=== PATIENT | female | born 1995 | race Caucasian/White ===

== ENCOUNTER 2020-12-08 22:32 | Emergency (ER) | payer OTHER, SELFPAY ==
[2020-12-09 00:24] LABS: Urine Blood 3+ (NEG); Urine Glucose NEGATIVE (NEG); Urine Protein 3+ (NEG); Urine Specific Gravity >1.030 (1.005-1.030)
[2020-12-09 01:51] LABS: Urine Bacteria LOADED /HPF (<20); Urine Mucus 2+ /HPF (NONE SEEN); Urine RBC TNTC /HPF (NONE SEEN)
[2020-12-09 03:55] LABS: Absolute Lymphocytes (CBC) 3.2 K/uL (0.7-4.9); Basophils % 1.1 % (0-1.3); Hematocrit 37.2 % (36.0-45.0); MPV 7.9 fL (7.6-11.3); RBC Red Blood Cell Count 4.67 M/uL (3.86-4.86)
[2020-12-09] MEDS ORDERED: NA CHLORIDE 0.9% 1,000 ML ONE (04:04)
[2020-12-09] MEDS ORDERED: CEFTRIAXONE/SWI 1gm 1 GM/10 ML SYR ONE (04:04)
[2020-12-09 04:15] LABS: BUN Blood Urea Nitrogen 10 mg/dL (7-18); Bicarbonate 25 mmol/L (21-32); Glucose Level 88 mg/dL (74-106); HCG, Quantitative 666 mIU/mL (1-3); Potassium 3.6 mmol/L (3.5-5.1); Sodium Level 137 mmol/L (136-145)
--- NOTE | 2020-12-09 04:21 | ER ---
Nurse's Notes [facility] Name: Meagan Kolb Age: 25 yrs Sex: Female : 1995 Arrival Date: 12/08/2020 Time: 22:32 Bed 26 Private MD: Diagnosis: Threatened ;Urinary tract infection, site not specified Presentation: 12/08 23:55 Chief complaint: Patient states: Small amount of vaginal bleeding with cramping at 2130 lp1 tonight; reports , unknown gestation; reports low back pain. Coronavirus screen: Client denies travel out of the [place] in the last 14 days. At this time, the client does not indicate any symptoms associated with coronavirus-19. Ebola Screen: No symptoms or risks identified at this time. Initial Sepsis Screen: Does the patient meet any 2 criteria? No. Patient's initial sepsis screen is negative. Does the patient have a suspected source of infection? No. Patient's initial sepsis screen is negative. Risk Assessment: Do you want to hurt yourself or someone else? Patient reports no desire to harm self or others. Onset of symptoms was December 08, 2020 at 21:30. 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 - Social history:: Smoking status: Patient/guardian denies using tobacco. - Family history:: not pertinent. Screenin/31 02:00 Abuse screen: Denies threats or abuse. Nutritional screening: No deficits noted. ll2 Tuberculosis screening: No symptoms or risk factors identified. Fall Risk None identified. Assessment: 02:00 General: Appears in no apparent distress. Behavior is calm, cooperative, appropriate ll2 for age. Pain: Complains of pain in back and left mid back. Neuro: Level of Consciousness is awake, alert, obeys commands, Oriented to person, place, time, situation. Cardiovascular: Patient's skin is warm and dry. Respiratory: Airway is patent Respiratory effort is even, unlabored, Respiratory pattern is regular, symmetrical. GI: Reports cramping. EENT: No signs and/or symptoms were reported regarding the EENT system. Derm: Skin is intact, is healthy with good turgor, Skin is pink, warm \T\ dry. Musculoskeletal: Circulation, motion, and sensation intact. Range of motion: intact in all extremities. Vital Signs: 12/08 23:55 BP 130 / 94; Pulse 89; Resp 20; Temp 98.7(O); Pulse Ox 100% on R/A; Weight 155.13 kg lp1 (R); Height 5 ft. 5 in. (165.10 cm); Pain 8/10; 12/09 02:00 BP 132 / 90; Pulse 88; Resp 18; Pulse Ox 100% on R/A; ll2 12/08 23:55 Body Mass Index 56.91 (155.13 kg, 165.10 cm) lp1 ED Course: 12/08 22:32 Patient arrived in ED. cl3 23:56 Triage completed. lp1 23:57 Arm band placed on. lp1 12/09 00:22 Solo Jackson MD is Attending Physician. fab 01:06 Patient taken to ultrasound. via wheelchair. lc3 01:37 Ultrasound completed. Patient tolerated well. lc3 01:37 Patient moved back from ultrasound. lc3 01:38 US Transvaginal Ob In Process Unspecified. EDMS 02:00 Patient has correct armband on for positive identification. Bed in low position. Call ll2 light in reach. Side rails up X 1. Pulse ox on. NIBP on. Warm blanket given. 02:00 No provider procedures requiring assistance completed. ll2 03:30 Initial lab(s) drawn, by me, sent to lab. Inserted saline lock: 20 gauge in right jb4 forearm, using aseptic technique. Blood collected. 03:32 Iris Rivera RN is Primary Nurse. ll2 04:20 Fei Green MD is Referral Physician. fab Administered Medications: 02:00 Drug: NS 0.9% 1000 ml Route: IV; Rate: 1 bolus; Site: right forearm; ll2 03:15 Drug: Rocephin 1 grams Route: IV; Rate: per protocol; Site: right forearm; ll2 04:20 Follow up: Response: No adverse reaction; IV Status: Completed infusion; IV Intake: [id number] 04:15 Drug: Augmentin 875 mg Route: PO; ll2 Intake: 04:20 IV: 10ml; Total: 10ml. ll2 Outcome: 04:20 Discharge ordered by . fab 04:44 Patient left the ED. 2 Signatures: Dispatcher [employer] EDMS Solo Jackson MD MD cha Pena, Laura, RN RN lp1 Lelia Lundberg James, JOURDAN RN jb4 Juan Carlos Palencia3 Iris Rivera, JOURDAN RN ll2
--- NOTE | 2020-12-09 04:21 | EDPHYS ---
Physician Documentation [facility] Name: Meagan Kolb Age: 25 yrs Sex: Female : 1995 Arrival Date: 12/08/2020 Time: 22:32 Bed 26 Private MD: FRANKY Physician Solo Jackson HPI: 12/09 02:33 This 25 yrs old Female presents to ER via Ambulatory with complaints of fab Vaginal Bleeding, Abdominal Cramping. 02:33 The patient presents with flank pain, on the left. Onset: The symptoms/episode fab began/occurred yesterday. Modifying factors: The symptoms are alleviated by nothing, the symptoms are aggravated by nothing. Associated signs and symptoms: The patient has no apparent associated signs or symptoms. Severity of symptoms: At their worst the symptoms were mild, in the emergency department the symptoms are unchanged. The patient is sexually active, reportedly has a single partner. The patient has not experienced similar symptoms in the past. 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 - Social history:: Smoking status: Patient/guardian denies using tobacco. - Family history:: not pertinent. ROS: 12/09 02:33 Constitutional: Negative for fever, chills, and weight loss, Eyes: Negative for injury, fab pain, redness, and discharge, ENT: Negative for injury, pain, and discharge, Neck: Negative for injury, pain, and swelling, Cardiovascular: Negative for chest pain, palpitations, and edema, Respiratory: Negative for shortness of breath, cough, wheezing, and pleuritic chest pain, Abdomen/GI: Negative for abdominal pain, nausea, vomiting, diarrhea, and constipation, Back: Negative for injury and pain, MS/Extremity: Negative for injury and deformity, Skin: Negative for injury, rash, and discoloration, Neuro: Negative for headache, weakness, numbness, tingling, and seizure, Psych: Negative for depression, anxiety, suicide ideation, homicidal ideation, and hallucinations, Allergy/Immunology: Negative for hives, rash, and allergies, Endocrine: Negative for neck swelling, polydipsia, polyuria, polyphagia, and marked weight changes, Hematologic/Lymphatic: Negative for swollen nodes, abnormal bleeding, and unusual bruising. : Positive for flank pain, vaginal bleeding, of the left mid back. Exam: 02:33 Constitutional: This is a well developed, well nourished patient who is awake, alert, fab and in no acute distress. Head/Face: Normocephalic, atraumatic. Eyes: Pupils equal round and reactive to light, extra-ocular motions intact. Lids and lashes normal. Conjunctiva and sclera are non-icteric and not injected. Cornea within normal limits. Periorbital areas with no swelling, redness, or edema. ENT: Nares patent. No nasal discharge, no septal abnormalities noted. Tympanic membranes are normal and external auditory canals are clear. Oropharynx with no redness, swelling, or masses, exudates, or evidence of obstruction, uvula midline. Mucous membranes moist. Neck: Trachea midline, no thyromegaly or masses palpated, and no cervical lymphadenopathy. Supple, full range of motion without nuchal rigidity, or vertebral point tenderness. No Meningismus. Chest/axilla: Normal chest wall appearance and motion. Nontender with no deformity. No lesions are appreciated. Cardiovascular: Regular rate and rhythm with a normal S1 and S2. No gallops, murmurs, or rubs. Normal PMI, no JVD. No pulse deficits. Respiratory: Lungs have equal breath sounds bilaterally, clear to auscultation and percussion. No rales, rhonchi or wheezes noted. No increased work of breathing, no retractions or nasal flaring. Abdomen/GI: Soft, non-tender, with normal bowel sounds. No distension or tympany. No guarding or rebound. No evidence of tenderness throughout. Back: No spinal tenderness. No costovertebral tenderness. Full range of motion. Skin: Warm, dry with normal turgor. Normal color with no rashes, no lesions, and no evidence of cellulitis. MS/ Extremity: Pulses equal, no cyanosis. Neurovascular intact. Full, normal range of motion. Neuro: Awake and alert, GCS 15, oriented to person, place, time, and situation. Cranial nerves II-XII grossly intact. Motor strength 5/5 in all extremities. Sensory grossly intact. Cerebellar exam normal. Normal gait. Psych: Awake, alert, with orientation to person, place and time. Behavior, mood, and affect are within normal limits. Vital Signs: 12/08 23:55 BP 130 / 94; Pulse 89; Resp 20; Temp 98.7(O); Pulse Ox 100% on R/A; Weight 155.13 kg lp1 (R); Height 5 ft. 5 in. (165.10 cm); Pain 8/10; 12/09 02:00 BP 132 / 90; Pulse 88; Resp 18; Pulse Ox 100% on R/A; ll2 12/08 23:55 Body Mass Index 56.91 (155.13 kg, 165.10 cm) lp1 MDM: 01:59 Patient medically screened. [facility] 02:37 Differential diagnosis: ruptured ectopic , urinary tract infection. Data [facility] reviewed: vital signs, nurses notes, lab test result(s), radiologic studies, ultrasound. Data interpreted: conveyor monitor: not applicable for this patient encounter. rate is 89 beats/min, rhythm is regular, Pulse oximetry: on room air is 100 %. Counseling: I had a detailed discussion with the patient and/or guardian regarding: the historical points, exam findings, and any diagnostic results supporting the discharge/admit diagnosis, lab results, the need for outpatient follow up, for definitive care, an OB/Gyne specialist. 12/09 00:11 Order name: Urine Dipstick--Ancillary (enter results); Complete Time: 02:02 [facility] 12/09 00:11 Order name: Urine --Ancillary (enter results); Complete Time: 02:02 [facility] 12/09 00:11 Order name: Urine Culture [facility] 12/09 00:11 Order name: Urine Microscopic Only; Complete Time: 02:02 [facility] 12/09 00:23 Order name: Quantitative Hcg; Complete Time: 04:20 [facility] 12/09 00:23 Order name: Abo/rh Typing; Complete Time: 04:20 [facility] 01/30 23:55 Order name: Urine Dipstick-Ancillary (obtain specimen); Complete Time: 00:12 lp1 12/08 23:55 Order name: Urine Test (obtain specimen); Complete Time: 00:12 lp1 12/09 00:11 Order name: US Transvaginal Ob mw2 12/09 00:23 Order name: Basic Metabolic Panel; Complete Time: 04:20 [facility] 12/09 00:23 Order name: CBC with Diff; Complete Time: 04:03 [facility] 12/09 00:23 Order name: IV Saline Lock; Complete Time: 03:47 [facility] 12/09 00:23 Order name: Labs collected and sent; Complete Time: 03:47 [facility] 12/09 00:23 Order name: NPO; Complete Time: 02:57 [facility] Administered Medications: 02:00 Drug: NS 0.9% 1000 ml Route: IV; Rate: 1 bolus; Site: right forearm; ll2 03:15 Drug: Rocephin 1 grams Route: IV; Rate: per protocol; Site: right forearm; ll2 04:20 Follow up: Response: No adverse reaction; IV Status: Completed infusion; IV Intake: [id number] 04:15 Drug: Augmentin 875 mg Route: PO; ll2 Disposition: 12/09/20 04:20 Discharged to Home. Impression: Threatened , Urinary tract infection, site not specified. - Condition is Stable. - Discharge Instructions: Threatened Miscarriage, Urinary Tract Infection, Adult, Vaginal Bleeding During , First Trimester, First Trimester of , [id number], Urinary Tract Infection, Adult, Ulgj-ib-[id number], First Trimester of , Threatened Miscarriage, Kyji-[id number], Pelvic Rest. - Prescriptions for Augmentin 875- 125 mg Oral Tablet - take 1 tablet by ORAL route every 12 hours for 10 days; 20 tablet. Vitamin 27- 0.8 mg Oral Tablet - take 1 tablet by ORAL route once daily; 30 tablet. - Medication Reconciliation Form, Thank You Letter, Antibiotic Education, Prescription Opioid Use form. - Follow up: Private Physician; When: 2 - 3 days; Reason: Recheck today's complaints, Continuance of care, Re-evaluation by your physician. Follow up: Fei Green; When: 2 - 3 days; Reason: Recheck today's complaints, Re-evaluation by your physician. - Problem is new. - Symptoms have improved. Signatures: Dispatcher [employer] Solo Lee MD MD cha Pena, Laura, RN RN lp1 Iris Rivera RN RN ll2 Corrections: (The following items were deleted from the chart) 04:44 04:20 12/09/2020 04:20 Discharged to Home. Impression: Threatened ; Urinary ll2 tract infection, site not specified. Condition is Stable. Discharge Instructions: Threatened Miscarriage, Urinary Tract Infection, Adult, Vaginal Bleeding During , First Trimester, First Trimester of , [id number]-[id number], Urinary Tract Infection, Adult, Fyrm-us-Jufr, First Trimester of , Threatened Miscarriage, Puvy-fy-Utnl, Pelvic Rest. Prescriptions for Augmentin 875-125 mg Oral Tablet - take 1 tablet by ORAL route every 12 hours for 10 days; 20 tablet, Vitamin 27-0.8 mg Oral Tablet - take 1 tablet by ORAL route once daily; 30 tablet. and Forms are Medication Reconciliation Form, Thank You Letter, Antibiotic Education, Prescription Opioid Use. Follow up: Private Physician; When: 2 - 3 days; Reason: Recheck today's complaints, Continuance of care, Re-evaluation by your physician. Follow up: Fei Green; When: 2 - 3 days; Reason: Recheck today's complaints, Re-evaluation by your physician. Problem is new. Symptoms have improved. fab
[2020-12-09] MEDS ORDERED: AMOX/K CLAV 875 MG TAB ONE (04:35)
[2020-12-09 04:49] VITALS: TEMP 98.7; O2SAT 100
[2020-12-09 04:50] VITALS: BP 132/90
--- NOTE | 2020-12-10 19:24 | RAD REPORT ---
EXAM DESCRIPTION: US - Transvaginal OB - 12/09/2020 1:38 am CLINICAL HISTORY: ABD CRAMPING, TECHNIQUE: Real-time slaughter scale and Doppler transabdominal sonographic imaging was performed to eval uate the gravid uterus. Transvaginal images were acquired to better evaluate the fetus. COMPARISON: None available for comparison FINDINGS: Uterus: The uterus is anteverted. Gestational sac: There is an intrauterine sac or fluid collection which measures approximately 2.5 mm . This could correspond to a gestational sac of approximately 4 weeks 6 days. There is no demonstrabl e yolk sac or embryonic pole with cardiac activity. Right ovary: The right ovary measures 1.8 x 1.8 x 1.8 cm. Normal follicular pattern. Normal flow. Left ovary: The left ovary measures 2.4 x 1.4 x 2.5 cm. Normal follicular pattern. Normal flow. Free fluid: None IMPRESSION: Intrauterine sac or fluid collection possibly representing an early gestational sac. Bec ause there is no yolk sac, it cannot be confirmed that this is a normal intrauterine . A pse udosac with ectopic cannot be excluded. Careful follow-up including correlation with quanti tative beta hCG levels is recommended. Electronically signed by: Elizabeth Perry MD 12/09/2020 2:09 AM RELAY TELEGRAPHER Due to temporary technical issues with the PACS/Fluency reporting system, reports are being signed by the in house radiologists without review as a courtesy to insure prompt reporting. The interpreting radiologist is fully responsible for the content of the report.
== END 2020-12-09 04:44 | disposition home or self-care (01) ==
LOC: ER 22:32
DX: O20.0 Threatened abortion (principal); Z3A.08 8 weeks gestation of pregnancy; O23.41 Unspecified infection of urinary tract in pregnancy, first trimester; Z88.6 Allergy status to analgesic agent
CPT/HCPCS: 36415; 76817; 80048; 81003; 81015; 81025; 84702; 85025; 86900; 86901; 87086; 87088; 96365; 99284; J0696; J7030